=== PATIENT | female | born 1965 | race Caucasian/White ===

== ENCOUNTER 2016-08-23 21:11 | Emergency (ER) | payer SELFPAY ==
[~2016-08-23] VITALS: Ht 162.6 cm; Wt 63.5 kg
[2016-08-23] MEDS ORDERED: CLONIDINE 0.1MG TABLET PO ONE (23:00)
[2016-08-23] MEDS ORDERED: DIPHENHYDRAMINE 50MG/ML VIAL IV ONE (23:00)
[2016-08-23] MEDS ORDERED: METOCLOPRAMIDE HCL 10MG/2ML VIAL IV ONE (23:00)
[2016-08-23 23:21] LABS: BASOPHILS % 0.6 % (0.0-2.0); EOSINOPHILS % 0.6 % (0.0-5.0); HEMATOCRIT. 43.4 % (36.0-48.0); HEMOGLOBIN. 14.9 g/dL (12.0-16.0); LYMPHOCYTES % 14.4 % (20.0-50.0); MEAN CORPUSCULAR HEMOGLOBIN 30.7 pg (28.0-32.0); MEAN CORPUSCULAR VOLUME 89.3 fL (81.0-99.0); MEAN PLATELET VOLUME 7.4 fl (7.4-10.4); MONOCYTES % 4.8 % (2.0-8.0); NEUTROPHILS % 79.6 % (40.0-76.0); PLATELET 215 x1000/uL (130-400); RED BLOOD CELL COUNT 4.86 mill/uL (4.2-5.4)
[2016-08-23] MEDS ORDERED: METOCLOPRAMIDE HCL 10MG/2ML VIAL ONE (23:32)
[2016-08-23 23:33] LABS: CARBON DIOXIDE 26 mEq/L (21-32); CHLORIDE 108 mEq/L (98-107)
[2016-08-24 00:23] VITALS: BP 154/74
== END 2016-08-24 01:07 | disposition home or self-care (01) ==
LOC: ER 21:23
DX: I10 Essential (primary) hypertension (principal); R51 Headache; Z90.710 Acquired absence of both cervix and uterus
CPT/HCPCS: 36415; 70450; 71010; 80048; 85025; 93005; 96374; 96375; 99285; J1200; J2765; Z7610